=== PATIENT | female | born 2000 | race Two or more races ===

== ENCOUNTER 2024-10-02 10:05 | Emergency (ER) | payer OTHER ==
[~2024-10-02] VITALS: Ht 157.5 cm; Wt 68.0 kg
[2024-10-02 11:23] LABS: PREGNANCY TEST URINE QUAL NEGATIVE (NEGATIVE)
[2024-10-02 13:01] VITALS: BP 115/72; TEMP 98.2; O2SAT 99
== END 2024-10-02 13:01 | disposition home or self-care (01) ==
LOC: ER 10:12
DX: Z02.89 Encounter for other administrative examinations (principal); Z65.3 Problems related to other legal circumstances
CPT/HCPCS: 84703-TC